=== PATIENT | male | born 1990 | race Caucasian/White ===

== ENCOUNTER 2019-04-17 06:43 | Day surgery (SDC) | payer OTHER ==
[~2019-04-17] VITALS: Ht 170.2 cm; Wt 118.2 kg
[~2019-04-17 06:43] MED LIST: CEFAZOLIN 2 GM/50 ML (PMX) 50 ML IVPB ONE; SOD CHLORIDE 0.9% 1,000 ML IV SCH
[2019-04-17] MEDS ORDERED: BUPIVACAINE 0.25% (MPF) 30 ML INJ ONE (06:51)
[2019-04-17 07:50] VITALS: BP 134/97; PULSE 70; RESP 16; Ht 170.2 cm; Wt 118.2 kg
--- NOTE | 2019-04-17 08:24 | PREAC ---
Date/Time of Note Date/Time of Note DATE: 04/17/19 TIME: 08:22 Anesthesia Eval and Record Evaluation Time Pre-Procedure Interview DATE: 04/17/19 TIME: 08:22 Age 28 Sex male NPO: 8 hrs Preoperative diagnosis back mass Planned procedure excision of back mass Past Medical History Past Medical History: Includes GI: Morbid obesity Surgery & Anesthesia Issues No known issue Meds Anticoagulation: No Beta Renaldo within 24 hr: No Reason Beta Renaldo not given: Pt. not on B-Renaldo No Active Prescriptions or Reported Meds Current Medications Sodium Chloride 1,000 ml @ 75 mls/hr [id number] IV Last administered on 04/17/19at 07:40; Admin Dose 75 MLS/HR; Start 04/17/19 at 06:00; Stop 04/17/19 at 20:00 Meds reviewed: Yes Allergies Coded Allergies: No Known Drug Allergy (Verified Allergy, Unknown, 04/17/19) Allergies Reviewed: Yes Labs/Studies Labs Reviewed: Reviewed by anesthesiologist test: Negative Pre-procedure Exam Last vitals Vital Signs Date Temp Pulse Resp B/P (MAP) Pulse Ox O2 O2 Flow FiO2 Time Delivery Rate 04/17/19 97.6 70 16 134/97 97 Room Air 07:50 (109) Airway: Adequate mouth opening, Adequate thyromental dist Mallampati: Mallampati II Teeth: Normal Lung: Normal Heart: Normal ASA Physical Status ASA physical status: 1 Emergency: None Planned Anesthetic General/MAC: LMA Planned Pain Management Parenteral pain med Pre-operative Attestations Prior to commencing anesthesia and surgery, the patient was re-evaluated, there was verification of: *The patient's identity *The results of appropriate recent lab work and preoperative vital signs *The above evaluation not changing prior to induction *Anesthetic plan, risk benefits, alternative and complications discussed with patient/family; questions answered; patient/family understands, accepts and wishes to proceed. WILLIE ROSS Apr 17, 2019 08:24
[2019-04-17] MEDS ORDERED: FENTAnyl 50 MCG/ML VIAL ONE (08:39)
[2019-04-17] MEDS ORDERED: LIDOCAINE 2% (SDV) 5 ML INJ ONE (08:40)
[2019-04-17] MEDS ORDERED: PROPOFOL 20 ML ONE (08:40)
[2019-04-17] MEDS ORDERED: CEFAZOLIN 1 GM INJ ONE (08:40)
[2019-04-17] MEDS ORDERED: HYDROCODONE/APAP (5/325) TAB PO ONE (09:30)
--- NOTE | 2019-04-17 09:32 | OPR ---
Date/Time of Note Date/Time of Note DATE: 04/17/19 TIME: 09:30 Operative Report Procedure Date: Apr 17, 2019 Preoperative Diagnosis back mass Postoperative Diagnosis same Operation/Procedure Performed 1. excision of back mass 7 cm mass 11 cm incision 2. localized adjacent tissue transfer with the use of skin flaps 22 sq cm defect of the back 3. therapeutic injection of subcutaneous local anesthesia Surgeon see signature line Bilingual Medical Assistant none Anesthesia Type: general Estimated Blood Loss: 0 - 10 ml's Transfusion none Specimen back mass Grafts/Implants none Complications none Pt Condition Post Procedure: stable Indications This is a 28-year-old male with a large back mass. He request surgical excision back mass. Risks alternatives benefits and percent were discussed the patient. Patient expressed understanding and consents to the operation. Procedure Description Patient is taken to the OR and prepped and draped in usual sterile fashion. Surgical timeout was performed. IV antibiotics were given. Long transverse incision was made with a 10 blade over the back mass due to the patient's obesity. Dissection with cautery was carried down to the deep subcutaneous tissues. The mass is identified and circumferentially resected. Good hemostasis established. Due to tissue defect localization just transfer with use of skin flaps performed. Multilayer closure with interrupted 3-0 Vicryl and skin carmine. Therapeutic contains local anesthesia was injected throughout the incision site. Dry dressings were applied. Ismael HERNANDEZ Apr 17, 2019 09:32
[2019-04-17 09:37] VITALS: BP 118/69; RESP 16
[2019-04-17 09:42] VITALS: BP 135/78; PULSE 84; RESP 16
--- NOTE | 2019-04-17 09:42 | PAC ---
Date/Time of Note Date/Time of Note DATE: 04/17/19 TIME: 09:42 Post-Anesthesia Notes Post-Anesthesia Note Last documented vital signs Vital Signs Date Temp Pulse Resp B/P (MAP) Pulse Ox O2 O2 Flow FiO2 Time Delivery Rate 04/17/19 97.6 70 16 134/97 97 Room Air 0942 (109) Activity: WNL Respiratory function: WNL Cardiovascular function: WNL Mental status: Baseline Pain reasonably controlled: Yes Hydration appropriate: Yes Nausea/Vomiting absent: Yes WILLIE ROSS Apr 17, 2019 09:42
[2019-04-17 09:47] VITALS: BP 151/82; PULSE 90; RESP 18
[2019-04-17 09:52] VITALS: BP 155/77; PULSE 84; RESP 17
[2019-04-17] MEDS ORDERED: KETOROLAC 30 MG INJ IV PRN (10:00)
[2019-04-17] MEDS ORDERED: OXYCODONE/ACETAMINOPHEN (5/325) TAB PO PRN ×2 (10:00)
[2019-04-17] MEDS ORDERED: hydrALAzine 20 MG INJ IV PRN (10:00)
[2019-04-17] MEDS ORDERED: MEPERIDINE 25 MG INJ IV PRN (10:00)
[2019-04-17] MEDS ORDERED: LABETALOL HCL 20MG INJ IV PRN (10:00)
[2019-04-17] MEDS ORDERED: FENTAnyl 50 MCG/ML VIAL IV PRN ×3 (10:00)
[2019-04-17] MEDS ORDERED: EPHEDrine 25 MG/5 ML SYG IV PRN (10:00)
[2019-04-17] MEDS ORDERED: ONDANSETRON 4 MG INJ IV PRN (10:00)
[2019-04-17] MEDS ORDERED: DIPHENHYDRAMINE 50 MG INJ IV PRN (10:00)
[2019-04-17] MEDS ORDERED: ALBUTEROL 0.083% (NEB) 2.5 MG/3 ML AMP HHN PRN (10:00)
[2019-04-17 10:50] VITALS: BP 121/70; PULSE 74; RESP 16
== END 2019-04-17 11:10 | disposition home or self-care (01) ==
LOC: SDS 06:43 → EDSEX 12:00
PROVIDERS: ATTEND Surgery
DX: D21.6 Benign neoplasm of connective and other soft tissue of trunk, unspecified (principal); E66.01 Morbid (severe) obesity due to excess calories
CPT/HCPCS: 14001; 88307; J0690; J3010; J7030; Z7512; Z7610